=== PATIENT | female | born 1950 | race Caucasian/White ===

== ENCOUNTER → 2016-10-27 | Outpatient (CLI) | payer MEDICARE, SELFPAY | END | disposition short-term general hospital (02) | LOC: CLPULM 09:57 | DX: J44.9 Chronic obstructive pulmonary disease, unspecified (principal); I10 Essential (primary) hypertension; I08.3 Combined rheumatic disorders of mitral, aortic and tricuspid valves; E46 Unspecified protein-calorie malnutrition ==

== ENCOUNTER → 2016-11-24 | Outpatient (CLI) | payer MEDICARE, SELFPAY | END | disposition short-term general hospital (02) | LOC: CLPULM 03:24 | DX: J44.9 Chronic obstructive pulmonary disease, unspecified (principal); I10 Essential (primary) hypertension; I34.0 Nonrheumatic mitral (valve) insufficiency; I27.2 Other secondary pulmonary hypertension; I35.1 Nonrheumatic aortic (valve) insufficiency; I07.1 Rheumatic tricuspid insufficiency; R09.02 Hypoxemia; E46 Unspecified protein-calorie malnutrition; Z87.891 Personal history of nicotine dependence ==